=== PATIENT | male | born 1980 | race Caucasian/White ===

== ENCOUNTER 2023-09-21 23:53 | Emergency (ER) | payer OTHER, SELFPAY ==
[2023-09-21 23:55] VITALS: BP 142/72; PULSE 92; RESP 16; TEMP 36.7; O2SAT 99; BMI 26.7
--- NOTE | 2023-09-22 00:20 | EX.ED.DYSGE1 ---
HPI History of Present Illness Chief Complaint: Nosebleed Informant: patient and spouse/S.O. Narrative Narrative: 42-year-old healthy male was working on a car, he was leaning against a wrench that slipped, causing him to fall prone against the edge of a metal tray that hit him in the face right at the base of his nose. Sustained a laceration, he states he had profuse bleeding from his nose as well, without significant facial trauma otherwise. He states it was underneath of his nose/nostrils not wear his nasal bone or maxilla is. He states a friend helped him use some Afrin into both sides and they were able to get the bleeding stopped and now he feels like he is having trouble breathing through his right nose because of what ever is back in his nose, presumably clots. He states he remembers swallowing a bunch of blood and make him feel little nauseated afterwards. He is not sure which side came out of if it did come out of just 1 side. Takes no anticoagulants. Denies any systemic symptoms right now. Denies any oral or dental pain/injury. PFSH PFSH Medical History no medical history no medical history Social History Smoking Status: Never smoker [facility] ED ENT ENT ED: Reports as per HPI, epistaxis and facial pain Cardiovascular Cardiovascular: Denies syncope Gastrointestinal Gastrointestinal: Denies vomiting Integumentary Reports as per HPI and laceration Neurologic Neurologic: Denies headache(s) EXAM Physical Exam Const Vital Signs: 09/21/23 23:55 Temperature 98.1 F Temperature Source Oral Pulse Rate 92 Respiratory Rate 16 Blood Pressure 142/72 H Blood Pressure Mean 95 Pulse Ox 99 Oxygen Delivery Method Room Air Positive well nourished and well developed General Appearance ED: well developed and NAD HEENT Reports moist mucous membranes HEENT Narrative: Normal intraoral exam. No dental injury or tenderness. He has tenderness in the soft tissue of the nose at the level of the introitus of the nostrils. There is a laceration that is of the face 1.0 cm partial-thickness, where the septum external tissues meet the face. There is no cartilage exposed or involved. There is no other laceration. There is blood and clots within the right naris limiting visualization of the septum and nasal tissues/mucosa, but the left side is clear and without any blood or lesion. There is no septal hematoma or perforation visible there. The maxilla and nasal bone are normal and nontender bilaterally. Eyes PERRL and EOMs intact bilaterally Eyes Narrative: No pain or extraocular entrapment with movement. Neck supple Neck Narrative: from Neuro oriented x3, CN's II-XII intact bilaterally, no sensory deficits noted and gait normal Psych mental status grossly normal Skin no rashes or lesions noted Skin Narrative: Laceration to the face see above MDM MDM MDM Narrative Medical decision making narrative: I had patient blow his nose and he was able to get some blood and clots out, and he also had 1 come down into his posterior pharynx that he spat out. Afterwards he felt much better there is no recurrent bleeding, and I had nursing place L ET on his laceration, mostly for hemostasis so that we could Dermabond it. This was done see the procedure note. Also did a more thorough inspection of his nares after he blew his nose. There is no septal hematoma. There is no evidence of bleeding from the mucosal surfaces of the nose bilaterally. There was some crusted blood anteriorly beneath the lip of the nostril, I had him scrape it off with a moist tissue, there was no recurrent bleeding. This is near the area that was traumatized/contused. There is no hematoma by the laceration where this was. He was given appropriate discharge instructions regarding recurrent bleeding reasons to return he is comfortable with the plan. Procedures Lacerations face/nose: Length: 1 cm Depth: Skin Shape: Linear Prep: Sterile Conditions and Chlorhexadine Laceration repair: Dermabond Comment: no bleeding. good skin edge apposition. Discharge Plan Triage Chief Complaint: Nosebleed ED Provider: Junaid King Dx/Rx/DC Orders Clinical Impression: Laceration of nose, Contusion of face Instructions: ED Laceration, Face: Skin Glue Primary Care Provider: Care Physician,No Primary Activity Restrictions/Additional Instructions: If recurrent nosebleed follow these directions: get any [id number] nasal decongestant spray containing oxymetazoline or phenylephrine. For moderate-severe nosebleed: 1 - gather supplies: nasal decongestant spray (above), cotton ball, box of tissues, garbage can, old towel that you can wrap around your chest/neck (to catch blood) 2 - soak a cotton ball in the nasal spray 3 - blow your nose, get all blood and clots out, keep chin down to prevent blood from going back into throat and forming clots 4 - after blowing the last time, quickly spray 2 sprays of the nasal spray into the affected side and sniff it back, immediately followed by twisting the soaked cotton ball into the front of your nose and then hold pressure with your fingers. 5 - if bleeding controlled, leave cotton ball in place for at least 20 min before checking to see if the bleeding is controlled by removing the cotton ball. If not able to control bleeding, always welcome to return to the ER for help. Print Language: Cypriot Disposition Disposition: Home, Self Care
[2023-09-22] MEDS: Lidocaine/Epi/Tetracaine 50 ML 1 APPLIC TOPICAL (00:32)
[2023-09-22 01:23] VITALS: BP 124/80; PULSE 78; RESP 16; TEMP 36.6; O2SAT 97
== END 2023-09-22 01:24 | disposition home or self-care (01) ==
PROVIDERS: Emergency Provider Emergency Medicine; Visit Provider Emergency Medicine
DX: S01.21XA Laceration without foreign body of nose, initial encounter (principal); W01.0XXA Fall on same level from slipping, tripping and stumbling without subsequent striking against object, initial encounter
CPT/HCPCS: 12011; 99282